=== PATIENT | male | born 1975 | race Caucasian/White ===

== ENCOUNTER → 2021-10-28 | Day surgery (SDC) | payer OTHER ==
[~2021-10-28] MED LIST: AMLODIPINE BESYL5 MG PO; BIOTIN2500 MCG PO; FENTANYL CITRATE/PF 100MCG/2 ML INJ ONE; HEARTBURN RELI200 MG PO; LIDOCAINE HCL 2% LOCAL INJ 5 ML SDV VIAL INJ ONE; METOCLOPRAMIDE HCL 10 MG/2ML VIAL ONE; MIDAZOLAM HCL 2 MG/2 ML VIAL ONE; OMEPRAZOLE40 MG PO; PROPOFOL IV EMULSION 10 MG/ML 20 ML VIAL ONE; VALSARTAN-HCTZ1 EAC3 PO; VITAMIN D3125 MCG PO
[2021-10-28 13:25] VITALS: BP 131/69
== END | disposition home or self-care (01) ==
LOC: OR 10:28
PROVIDERS: ATTEND Internal Medicine Gastroenterology
DX: K29.70 Gastritis, unspecified, without bleeding (principal); K31.7 Polyp of stomach and duodenum; K20.90 Esophagitis, unspecified without bleeding; K21.9 Gastro-esophageal reflux disease without esophagitis; R19.5 Other fecal abnormalities; Z71.3 Dietary counseling and surveillance; I10 Essential (primary) hypertension; J45.909 Unspecified asthma, uncomplicated; I34.1 Nonrheumatic mitral (valve) prolapse; R04.0 Epistaxis; Z01.810 Encounter for preprocedural cardiovascular examination; Z20.822 Contact with and (suspected) exposure to COVID-19; Z79.899 Other long term (current) drug therapy; Z68.33 Body mass index [BMI] 33.0-33.9, adult
CPT/HCPCS: 43239; 93005; C9113; J2001; J2250; J2704; J2765; J3010; U0002

== ENCOUNTER → 2021-10-29 | Outpatient (CLI) | payer OTHER ==
[~2021-10-29] MED LIST changes: -FENTANYL CITRATE/PF 100MCG/2 ML INJ ONE; -LIDOCAINE HCL 2% LOCAL INJ 5 ML SDV VIAL INJ ONE; -METOCLOPRAMIDE HCL 10 MG/2ML VIAL ONE; -MIDAZOLAM HCL 2 MG/2 ML VIAL ONE; -PROPOFOL IV EMULSION 10 MG/ML 20 ML VIAL ONE
== END ==
LOC: US 07:25
PROVIDERS: ATTEND Internal Medicine Gastroenterology
DX: R14.0 Abdominal distension (gaseous) (principal); R10.10 Upper abdominal pain, unspecified; R19.5 Other fecal abnormalities
CPT/HCPCS: 76700

== ENCOUNTER → 2024-08-21 | Outpatient (REF) | payer BC | LOC: US 08:27 | PROVIDERS: ATTEND Nurse Practitioner | DX: R10.10 Upper abdominal pain, unspecified (principal) | CPT/HCPCS: 76700 ==

== ENCOUNTER → 2024-10-27 | Outpatient (REF) | payer BC ==
[~2024-10-27] MED LIST changes: +IOPAMIDOL 370 MG/ML 100 ML INFUS..BTL INJ ONE
[2024-10-27 17:08] LABS: CREATININE, SERUM 1.16 mg/dL (0.72-1.25)
== END ==
LOC: CT 16:08
PROVIDERS: ATTEND Internal Medicine Gastroenterology
DX: R10.10 Upper abdominal pain, unspecified (principal); R16.0 Hepatomegaly, not elsewhere classified; I87.8 Other specified disorders of veins
CPT/HCPCS: 36415; 74160; 82565; 84520; Q9967